=== PATIENT | female | born 1960 | race Caucasian/White ===

== ENCOUNTER 2017-05-16 18:13 | Emergency (ER) | payer OTHER ==
[~2017-05-16] VITALS: Ht 165.1 cm; Wt 61.8 kg
[2017-05-16 18:28] VITALS: BP 136/90
[2017-05-16] MEDS ORDERED: CefTRIAXone SODIUM 1 GM/VIAL IM ONE (19:15)
[2017-05-16] MEDS ORDERED: IBUPROFEN 800 MG TABLET PO ONE (19:15)
[2017-05-16] MEDS ORDERED: LIDOCAINE HCL/PF 1% 2 ML VIAL IM ONE (19:15)
== END 2017-05-16 20:00 | disposition home or self-care (01) ==
LOC: EMS 18:17
DX: S90.562A Insect bite (nonvenomous), left ankle, initial encounter (principal); L03.114 Cellulitis of left upper limb; F17.210 Nicotine dependence, cigarettes, uncomplicated; W57.XXXA Bitten or stung by nonvenomous insect and other nonvenomous arthropods, initial encounter; Y93.89 Activity, other specified; Y92.89 Other specified places as the place of occurrence of the external cause; Y99.8 Other external cause status
CPT/HCPCS: 96372; 99283; J0696; J3490